=== PATIENT | female | born 1980 | race Caucasian/White ===

== ENCOUNTER → 2016-07-24 | Emergency (ER) | payer OTHER ==
[~2016-07-24] VITALS: Ht 160 cm; Wt 80.0 kg
[~2016-07-24] MED LIST: DIPHENHYDRAMINE 50 MG INJ IM ONE; LORA1TAB PO; LORAZEPAM 2 MG INJ IM ONE; SOD CHLORIDE 0.9% 1,000 ML IV STA
[2016-07-24 21:11] VITALS: Ht 160 cm; Wt 80.0 kg
[2016-07-25 00:35] LABS: ADD SCAN DIFF NO
[2016-07-25 00:38] LABS: BASOPHILS % 0.2 % (0.0-2.0); EOSINOPHILS # 0.1 10^3/ul (0.0-0.5); EOSINOPHILS % 0.5 % (0.0-7.0); HEMATOCRIT 37.4 % (37.0-47.0); HEMOGLOBIN 12.2 g/dl (12.0-16.0); LYMPHOCYTES # 2.1 10^3/ul (0.8-2.9); LYMPHOCYTES % 22.4 % (15.0-51.0); MEAN CORPUSCULAR HGB CONC 32.6 g/dl (32.0-37.0); MEAN CORPUSCULAR VOLUME 82.7 fl (82.0-101.0); MEAN PLATELET VOLUME 12.5 fl (7.4-10.4); MONOCYTE # 0.5 10^3/ul (0.3-0.9); MONOCYTES % 4.9 % (0.0-11.0); NEUTROPHIL # 6.7 10^3/ul (1.6-7.5); NEUTROPHILS % 71.7 % (39.0-77.0); PLATELET COUNT 242 10^3/UL (140-415); RED BLOOD COUNT 4.52 10^6/ul (4.20-5.40); RED CELL DISTRIBUTION WIDTH 14.4 % (11.5-14.5); WHITE BLOOD COUNT 9.4 10^3/ul (4.8-10.8)
[2016-07-25 00:51] LABS: ALBUMIN 4.2 g/dl (3.3-4.9)
[2016-07-25 00:52] LABS: POTASSIUM 3.7 mmol/L (3.5-5.1)
[2016-07-25 00:54] LABS: ALBUMIN/GLOBULIN RATIO 1.13; CREATININE 0.64 mg/dl (0.44-1.00); TOTAL PROTEIN 7.9 g/dl (6.1-8.1)
[2016-07-25 00:55] LABS: CALCIUM 8.8 mg/dl (8.4-10.2)
[2016-07-25 02:24] LABS: ADD UMIC YES; URINE BILIRUBIN (Dip) NEGATIVE (NEGATIVE); URINE BLOOD (Dip) 2+ (NEGATIVE); URINE COLOR LT. YELLOW (YELLOW); URINE GLUCOSE (Dip) NEGATIVE (NEGATIVE); URINE KETONES (Dip) NEGATIVE (NEGATIVE); URINE LEUKOCYTE ESTERASE (Dip) NEGATIVE (NEGATIVE); URINE NITRITE (Dip) NEGATIVE (NEGATIVE); URINE TOTAL PROTEIN (Dip) NEGATIVE (NEGATIVE); URINE UROBILINOGEN (Dip) 0.2 E.U./dL (0.1-1.0)
[2016-07-25 02:29] LABS: BARBITURATES Negative (NEGATIVE)
[2016-07-25 02:30] LABS: BENZODIAZEPINES Negative (NEGATIVE); CANNABINOIDS Negative (NEGATIVE); COCAINE Negative (NEGATIVE); OPIATES Negative (NEGATIVE)
[2016-07-25 02:52] LABS: BACTERIA,URINE OCCASIONAL; SQUAMOUS EPITHELIAL CELL,UR MODERATE
[2016-07-25 03:19] VITALS: BP 107/54; PULSE 70; RESP 15; TEMP 98.3
--- NOTE | 2016-07-25 03:27 | ERD ---
ER Documentation Chief Complaint Date/Time DATE: 07/25/16 TIME: 03:20 Chief Complaint Anxiety HPI This is a 36-year-old female who presents to the ED complaining of shortness of breath that started earlier today. States that she feels like her whole body is weak and she cannot move anything. Mother reports that this happened during her arrival here at the ED. Denies any dizziness, abdominal pain, nausea, vomiting, chest pain, cough, rhinorrhea. Denies any family history of stroke or heart attacks. Denies any smoking, alcohol use, drug use. States that she is currently not . Does not remember her last menses. ROS All systems reviewed and are negative except as per history of present illness. Medications Home Meds Active Scripts Lorazepam* (Lorazepam*) 1 Mg Tablet, 1 MG PO Q8H Y for ANXIETY, #10 TAB Prov:ROBERT HILL PA-C 07/25/16 Allergies Allergies: Coded Allergies: No Known Allergy (Unverified , 07/24/16) PMhx/Soc Medical and Surgical Hx: pt denies Medical Hx, pt denies Surgical Hx Hx Alcohol Use: No Hx Substance Use: No Hx Tobacco Use: No Smoking Status: Never smoker Physical Exam Vitals Vital Signs Date Time Temp Pulse Resp B/P Pulse Ox O2 Delivery O2 Flow Rate FiO2 07/24/16 21:11 97.8 92 20 132/88 100 Physical Exam Const: [id number], well-nourished. In no acute distress. Head: Atraumatic, normocephalic Eyes: Normal Conjunctiva without injection. No purulent discharge. PERRLA. EOMI ENT: Normal external ear. Ear canal without erythema. Tympanic membrane pearly nunez without effusion or bulging. Nasal canal clear with normal turbinates. Moist oropharynx without tonsillar exudates. Non-erythematous pharynx. Uvula midline. No drooling. No trismus. Neck: No cervical midline tenderness. Full range of motion. No meningismus. No cervical lymphadenopathy. No JVD. Resp: Clear to auscultation bilaterally. No wheezing, rhonchi, rales, or crackles. No accessory muscle use. No retractions. Cardio: Regular rate and rhythm. No murmurs, rubs or gallops. Abd: Soft, non tender, non distended. Normal bowel sounds. No palpable masses. No rebound tenderness. No guarding. Negative McBurney's Point. Negative Flanagan's Sign. Skin: Normal skin turgor. No petechiae or rashes Back: No midline tenderness. No CVA tenderness. Ext: No cyanosis, or edema. Distal pulses intact bilaterally. Neur: Awake and alert. Normal gait. Normal coordination. Cranial Nerves II- VII intact. Normal finger to nose. Muscle strength 5/5. Sensation intact. Psych: Normal Mood and Affect Result Diagram: 07/24/16234907/24/162349 Results 24 hrs Laboratory Tests Test 07/24/16 01:15 07/24/16 23:50 07/25/16 01:15 Urine Amphetamines Screen Negative Urine Barbiturates Negative Urine Benzodiazepines Screen Negative Urine Cannabinoids Negative Urine Cocaine Screen Negative Urine Opiates Screen Negative Alanine Aminotransferase (ALT/SGPT) 35IU/L Albumin 4.2g/dl Albumin/Globulin Ratio 1.13 Alkaline Phosphatase 127IU/L Anion Gap 18 Aspartate Amino Transf (AST/SGOT) 32IU/L Basophils # 0.010^3/ul Basophils % 0.2% Blood Urea Nitrogen 18mg/dl Calcium Level 8.8mg/dl Carbon Dioxide Level 24mmol/L Chloride Level 104mmol/L Creatinine 0.64mg/dl Direct Bilirubin 0.00mg/dl Eosinophils # 0.110^3/ul Eosinophils % 0.5% Globulin 3.70g/dl Glucose Level 107mg/dl Hematocrit 37.4% Hemoglobin 12.2g/dl Indirect Bilirubin 0.0mg/dl Lipase 94U/L Lymphocytes # 2.110^3/ul Lymphocytes % 22.4% Mean Corpuscular Hemoglobin 27.0pg Mean Corpuscular Hemoglobin Concent 32.6g/dl Mean Corpuscular Volume 82.7fl Mean Platelet Volume 12.5fl Monocytes # 0.510^3/ul Monocytes % 4.9% Neutrophils # 6.710^3/ul Neutrophils % 71.7% Nucleated Red Blood Cells # 0.010^3/ul Nucleated Red Blood Cells % 0.0/100WBC Platelet Count 42745^3/UL Potassium Level 3.7mmol/L Red Blood Count 4.5210^6/ul Red Cell Distribution Width 14.4% Sodium Level 142mmol/L Total Bilirubin 0.0mg/dl Total Protein 7.9g/dl White Blood Count 9.410^3/ul Urine Bacteria OCCASIONAL Urine Bilirubin NEGATIVE Urine Clarity CLEAR Urine Color LT. YELLOW Urine Glucose NEGATIVE% Urine Hemoglobin 2+ Urine Ketones NEGATIVE Urine Leukocyte Esterase NEGATIVE Urine Microscopic RBC 2-5/HPF Urine Microscopic WBC 0-2/HPF Urine Nitrite NEGATIVE Urine Specific Harper 1.020 Urine Squamous Epithelial Cells MODERATE Urine Total Protein NEGATIVE Urine Urobilinogen 0.2 E.U./dL Urine pH 5.5 Current Medications Medications (Trade) Dose Ordered Sig/Edilberto Route PRN Reason Start Time Stop Time Status Last Admin Dose Admin Lorazepam (Ativan) 1 mg ONCE ONCE IM 07/24/16 23:00 07/24/16 23:01 DC 07/24/16 22:59 Diphenhydramine HCl 25 mg 25 mg ONCE ONCE IM 07/24/16 23:00 07/24/16 23:01 DC 07/24/16 22:59 Sodium Chloride (NS) 1,000 ml @ 1,000 mls/hr Q1H STAT IV 07/24/16 23:33 07/25/16 00:32 DC 07/24/16 23:57 Procedures/MDM This is a 36-year-old female with no significant past medical history presents to the ED complaining of shortness of breath and feeling like she cannot move her body. Patient is afebrile and nontoxic-appearing. Patient was noted to be hypertonic and did not move her body. This discussed with my supervising physician, Dr. Al who agreed with the management and discharge plan. Patient's symptoms have improved after receiving Benadryl, Ativan, 1 L of normal saline. CBC: No leukocytosis. No e/o of systemic infection. No e/o anemia. CMP: No e/o severe acidosis, alkalosis, renal failure, diabetic ketoacidosis, liver disease Lipase within normal limits. Urine: No leukocyte esterase, no nitrites, no hematuria. Negative urine . Patient symptoms are likely due to anxiety. Patient no longer is feeling short of breath. There is no indication for chest x-ray at this time. Low suspicion for acute myocardial infarction, pneumothorax, pneumonia, cardiac tamponade, pulmonary embolism, pleural effusion, AAA, aortic dissection, Boerhaave's syndrome, cardiac dysrhythmias,meningitis, intracranial bleed, seizure, stroke, TIA or other emergent conditions. Discharge medications: Ativan Follow up with primary care physician in 1-2 days. Instructed patient to return to the ED sooner for any worsening symptoms. Patient's questions were answered. Patient understood and agreed with discharge plan. Patient discharged stable. Departure Diagnosis: Primary Impression: Anxiety attack Condition: Stable Patient Instructions: Anxiety Reaction, Panic Attack Referrals: [facility] YOU HAVE RECEIVED A MEDICAL SCREENING EXAM AND THE RESULTS INDICATE THAT YOU DO NOT HAVE A CONDITION THAT REQUIRES URGENT TREATMENT IN THE EMERGENCY DEPARTMENT. FURTHER EVALUATION AND TREATMENT OF YOUR CONDITION CAN WAIT UNTIL YOU ARE SEEN IN YOUR DOCTORS OFFICE WITHIN THE NEXT 1-2 DAYS. IT IS YOUR RESPONSIBILITY TO MAKE AN APPOINTMENT FOR FOLOW-UP CARE. IF YOU HAVE A PRIMARY DOCTOR --you should call your primary doctor and schedule an appointment IF YOU DO NOT HAVE A PRIMARY DOCTOR YOU CAN CALL OUR PHYSICIAN REFERRAL HOTLINE AT IF YOU CAN NOT AFFORD TO SEE A PHYSICIAN YOU CAN CHOSE FROM THE FOLLOWING [facility] [address] [facility]. [facility] [address] [employer] [facility]. [facility] [address] [facility] [facility] [address] [facility] [address] [facility]. [facility]. [address] [facility]. [facility] YOU HAVE RECEIVED A MEDICAL SCREENING EXAM AND THE RESULTS INDICATE THAT YOU DO NOT HAVE A CONDITION THAT REQUIRES URGENT TREATMENT IN THE EMERGENCY DEPARTMENT. FURTHER EVALUATION AND TREATMENT OF YOUR CONDITION CAN WAIT UNTIL YOU ARE SEEN IN YOUR DOCTORS OFFICE WITHIN THE NEXT 1-2 DAYS. IT IS YOUR RESPONSIBILITY TO MAKE AN APPOINTMENT FOR FOLOW-UP CARE. IF YOU HAVE A PRIMARY DOCTOR --you should call your primary doctor and schedule and appointment IF YOU DO NOT HAVE A PRIMARY DOCTOR YOU CAN CALL OUR PHYSICIAN REFERRAL HOTLINE AT . IF YOU CAN NOT AFFORD TO SEE A PHYSICIAN YOU CAN CHOSE FROM THE FOLLOWING [facility] INSTITUTIONS: [facility] [address] [place] [address] [facility] [address] [place] [address] [facility] + [facility] [address] [place] [address] [facility] URGENT CARE/SPECIALTIES Additional Instructions: Llame al doctor MAANA y yadira maxi TYLER PARA DENTRO DE 2-3 MEJIA.Dgale a la secretaria que nosotros le instruimos hacer esta tyler.Avise o llame si fernandez condicin se empeora antes de la tyler. Regresa aqui si peor o no mejor. ROBERT HILL PA-C Jul 25, 2016 03:27
== END | disposition home or self-care (01) ==
LOC: EDBD 21:03 → FTE 21:03
DX: F41.0 Panic disorder [episodic paroxysmal anxiety] (principal)
CPT/HCPCS: 36415; 80053; 80307; 83690; 85025; 96372; 99284; J1200; J2060; J7030; 81001; 81003